=== PATIENT | male | born 1980 | race Caucasian/White ===

== ENCOUNTER 2017-12-25 01:24 | Emergency (ER) | payer SELFPAY ==
[~2017-12-25] VITALS: Ht 162.6 cm; Wt 74.8 kg
[2017-12-25 01:29] VITALS: BP 137/83
--- NOTE | 2017-12-25 01:31 | NUR ---
37/M CAME IN W C/O URINARY BURNING X 1 WEEK. DENIES HEMATURIA, REPORTS NAUSEA, DENIES V/D, FEVER/CHILLS. DENIES OTHER PMH/RX/OTC
--- NOTE | 2017-12-25 01:31 | NUR ---
TO BED # 4 AMB, REPORT GIVEN TO RANJANA MARTINEZ.
[2017-12-25 01:57] LABS: APPEARANCE,URINE CLEAR (CLEAR); BILIRUBIN,URINE NEGATIVE (NEGATIVE); BLOOD, URINE TRACE-I (NEGATIVE); COLOR,URINE YELLOW (YELLOW); LEUKOCYTE ESTERASE ,URINE NEGATIVE (NEGATIVE); NITRITE, URINE NEGATIVE (NEGATIVE); UGLUCOSE NEGATIVE (NEGATIVE)
[2017-12-25 02:16] LABS: RBC,URINE 0-5 (RARE) /HPF (0-5); WBC,URINE 0-5 (RARE) /HPF (0-5)
[2017-12-25] MEDS ORDERED: ONDANSETRON 4 MG ODT PO ONE (02:55)
[2017-12-25] MEDS ORDERED: ALUMINUM HYD/MAG/SIMETHICONE 30 ML, DICYCLOMINE HCL LIQUID 20 MG, LIDOCAINE VISCOUS 2% ... PO ONE ×3 (02:55)
[2017-12-25] MEDS ORDERED: FAMOTIDINE 20 MG TAB PO ONE (02:55)
[2017-12-25 03:38] VITALS: BP 128/71
== END 2017-12-25 03:30 | disposition home or self-care (01) ==
LOC: MED 01:24
DX: F10.99 Alcohol use, unspecified with unspecified alcohol-induced disorder (principal); R10.13 Epigastric pain
CPT/HCPCS: 81001; 99284; S0119

== ENCOUNTER 2018-08-19 06:55 | Emergency (ER) | payer OTHER ==
[~2018-08-19] VITALS: Ht 165.1 cm; Wt 68.1 kg
[2018-08-19 07:16] VITALS: BP 119/74
--- NOTE | 2018-08-19 07:20 | NUR ---
38Y/M BIB SELF WITH C/O LEFT FOOT PAIN S/P INJRUY WHILE CHANGING TIRE. PT STATES THAT THE RIM FELL ON IT. REPORTS PAIN FROM THE TOES TO ABOVE THE ANKLE. REPORTS NUMBNESS OF 3 MIDDLE TOES. + REDNESS, ECCHYMOSIS NOTED TO 3 MIDDLE TOES. LAST DOSE OF ADVIL TAKEN LAST NIGHT. PT IS AAOX4, VSS, BED DOWN, LOW, LOCKED, BEDRAIL UP X 1, ER MD AWARE AND NOTIFIED OF PT STATUS. HX DENIES RX DENIES
--- NOTE | 2018-08-19 07:51 | NUR ---
XRAY AT BEDSIDE
[2018-08-19] MEDS ORDERED: IBUPROFEN 800 MG TAB PO ONE (08:40)
--- NOTE | 2018-08-19 09:35 | NUR ---
SHORT SPLINT APPLIED TO PT L LOWER LEG, WRAPPED WITH JAYLEN WRAP. +CSM
--- NOTE | 2018-08-19 09:40 | NUR ---
PT GIVEN ONE ON ONE INSTRUCTION ON PROPER USE OF CRUTCHES. PT CRUTCHES FITTED TO PT HEIGHT WITH 2 INCH GAP BETWEEN CRUTCHES AND ARMPIT, WITH HANDLE POSITIONED AT WRIST AT REST. INSTRUCTION GIVEN ON MOVING FROM SITTING TO STANDING, AND WALKING. PT DEMONSTRATED SAFE USE FOR APPROXIMATELY 40 FEET, PT STATED HE FELT COMFORTABLE USING CRUTCHES.
--- NOTE | 2018-08-19 09:53 | NUR ---
PATIENT DEMONSTRATED HOW TO USE CRUTCHES
[2018-08-19 09:54] VITALS: BP 126/79
== END 2018-08-19 09:54 | disposition home or self-care (01) ==
LOC: MED 06:55
DX: S97.82XA Crushing injury of left foot, initial encounter (principal); W20.8XXA Other cause of strike by thrown, projected or falling object, initial encounter; Y93.89 Activity, other specified; Y92.89 Other specified places as the place of occurrence of the external cause; Y99.8 Other external cause status
CPT/HCPCS: 73630; 99283; Q0092; 29515

== ENCOUNTER 2018-08-24 06:40 | Emergency (ER) | payer OTHER ==
[~2018-08-24] VITALS: Ht 162.6 cm; Wt 72.6 kg
[2018-08-24 06:47] VITALS: BP 125/85
--- NOTE | 2018-08-24 06:52 | NUR ---
PT AMBULATED TO BED 12 WITH VSS. Addendum: 08/24/18 at 0656 by MED PT AMBULATED TO BED 9 WITH VSS.
--- NOTE | 2018-08-24 07:36 | NUR ---
PATIENT PRESENTS TO ED WITH pt attempted to ambulate without crutches lastnight and felt a crunch to his left foot. concerned he may have reinjured left foot came into the hospital to have it assessed. DENIES N/V/D; SKIN IS PINK/WARM/DRY; AAOX4 WITH EVEN AND STEADY GAIT; LUNGS CLEAR BL; HR EVEN AND REGULAR; PT DENIES ANY FEVER, CP, SOB, OR COUGH AT THIS TIME; PATIENT STATES PAIN OF 10/10 AT THIS TIME; VSS; PATIENT POSITIONED FOR COMFORT; HOB ELEVATED; BEDRAILS UP X2; BED DOWN. ER MD MADE AWARE OF PT STATUS.
[2018-08-24 07:41] VITALS: BP 125/85
--- NOTE | 2018-08-24 07:42 | NUR ---
Patient discharged with v/s stable. Written and verbal after care instructions given and explained. Patient verbalized understanding. Ambulatory with steady gait. All questions addressed prior to discharge. Advised to follow up with PMD.
== END 2018-08-24 07:42 | disposition home or self-care (01) ==
LOC: MED 06:40
DX: S93.602A Unspecified sprain of left foot, initial encounter (principal); H92.02 Otalgia, left ear; X58.XXXA Exposure to other specified factors, initial encounter; Y93.01 Activity, walking, marching and hiking; Y92.89 Other specified places as the place of occurrence of the external cause; Y99.8 Other external cause status
CPT/HCPCS: 29515; 99283

== ENCOUNTER 2018-10-31 17:55 | Emergency (ER) | payer OTHER ==
[~2018-10-31] VITALS: Ht 162.6 cm; Wt 65.8 kg
[2018-10-31 18:10] VITALS: BP 129/72
--- NOTE | 2018-10-31 18:54 | NUR ---
PT BIB SELF FOR LOWER BACK PAIN X1 WEEK. PT REPORTS CONSTANT NON-RADIATING PRESSURE PAIN IN LOWER BACK. NO VISIBLE BRUISES, SWELLING, ERYTHEMA, OR DEFORMITY, PT DENIES TRAUMA. PT DENIES UTI SYMPTOMS, N/V OR FEVER. PT REPORTS COUGH AND COLD LIKE SYMPOTMS X1 WEEK. VSS. ER TO SEE PT. MEDHX:DENEIS RX:DENIES
--- NOTE | 2018-10-31 19:08 | NUR ---
Recieved report from JUAN Oliver. ERMLetty to see patient. No needs stated at this time.
[2018-10-31] MEDS ORDERED: CYCLOBENZAPRINE 10 MG TAB PO ONE (19:40)
[2018-10-31] MEDS ORDERED: IBUPROFEN 800 MG TAB PO ONE (19:40)
--- NOTE | 2018-10-31 20:22 | NUR ---
Dr. Collins evaluating patient at bedside.
[2018-10-31 20:32] VITALS: BP 121/62
--- NOTE | 2018-10-31 20:32 | NUR ---
DISCHARGE PAPERWORK GIVEN TO PT. 10/06 PAIN BUT TOLLERABLE. VSS. RX OF FLEXERIL AND MOTRIN GIVEN. SIDE EFFECTS GIVEN. INSTRUCTED TO F/U WITH PCP AND WHEN TO RETURN TO ER. PT VERBALIZED UNDERSTANDING OF DC INSTRUCTIONS. ALL QUESTIONS ANSWERED.
[2018-10-31 20:38] LABS: APPEARANCE,URINE CLEAR (CLEAR); BILIRUBIN,URINE NEGATIVE (NEGATIVE); BLOOD, URINE NEGATIVE (NEGATIVE); COLOR,URINE ORANGE (YELLOW); LEUKOCYTE ESTERASE ,URINE NEGATIVE (NEGATIVE); NITRITE, URINE NEGATIVE (NEGATIVE); UGLUCOSE NEGATIVE (NEGATIVE)
== END 2018-10-31 20:32 | disposition home or self-care (01) ==
LOC: MED 17:55
DX: S39.012A Strain of muscle, fascia and tendon of lower back, initial encounter (principal); X58.XXXA Exposure to other specified factors, initial encounter; Y93.89 Activity, other specified; Y92.89 Other specified places as the place of occurrence of the external cause; Y99.8 Other external cause status
CPT/HCPCS: 81003; 99283